=== PATIENT | female | born 1985 | race Two or more races ===

== ENCOUNTER 2024-06-15 05:54 | Day surgery (SDC) | payer OTHER ==
[2024-06-13 11:51] LABS: HEMATOCRIT 38.5 % (36.0-45.00); MEAN CELL VOLUME 91.5 fL (80.00-100.00); MEAN CORPUSCULAR HEMOGLOBIN 30.9 pg (27.00-32.0); MEAN CORPUSCULAR HGB CONC 33.8 g/dl (32.0-36.0); PLATELET COUNT 350 K/uL (150-450); RED CELL DISTRIBUTION WIDTH 15.7 % (11.5-14.5)
[2024-06-13 12:22] LABS: INR 0.95; PARTIAL THROMBOPLASTIN TIME 28.6 SECONDS (22.0-34.0); PROTHROMBIN TIME 10.4 SECONDS (9.0-11.5)
[~2024-06-15 05:54] MED LIST: CONCEPT DHA CA1 EACH; NASAL MIST126 ML
[2024-06-15] MEDS ORDERED: CEFOXITIN SODIUM 2,000 MG VIAL IV ONE ×2 (08:40→08:49)
[2024-06-15] MEDS ORDERED: POVIDONE-IODINE 118 ML BOTT TOP ONE (08:50)
[2024-06-15] MEDS ORDERED: METHYLERGONOVINE MALEATE 0.2 MG/ML AMPUL ONE (09:37)
== END 2024-06-15 12:15 | disposition home or self-care (01) ==
LOC: CIR.AMB 05:54
PROVIDERS: ATTEND Obstetrics & Gynecology Maternal & Fetal Medicine
DX: O02.1 Missed abortion (principal)

== ENCOUNTER 2025-06-09 08:52 | Outpatient (CLI) | payer OTHER | END 2025-06-09 08:53 | disposition home or self-care (01) | LOC: PRENATAL 08:52 | PROVIDERS: ATTEND Obstetrics & Gynecology Maternal & Fetal Medicine | DX: O36.80X0 Pregnancy with inconclusive fetal viability, not applicable or unspecified (principal); Z36.82 Encounter for antenatal screening for nuchal translucency; Z14.8 Genetic carrier of other disease; Z3A.13 13 weeks gestation of pregnancy ==

== ENCOUNTER 2025-07-19 23:30 | Emergency (ER) | payer OTHER ==
[~2025-07-19] VITALS: Ht 152.4 cm; Wt 81.2 kg
[2025-07-20 00:22] VITALS: BP 140/100; O2SAT 98
[2025-07-20 02:04] LABS: BASO % 0.3 % (0.1-1.2); EOS # 0.20 (0.04-0.54); EOS % 1.7 % (0.7-7.0); LYMPH # 2.24 (1.18-3.74); LYMPH % 19.4 % (19.3-53.1); MEAN PLATELET VOLUME 9.70 fl (9.4-12.4); MONO # 0.67 (0.24-0.82); MONO % 5.8 % (4.7-12.5); NEUT # 8.30 (1.56-6.13); NEUT % 71.8 % (34.0-71.1); RED CELL DISTRIBUTION WIDTH 13.0 % (11.6-14.4)
[2025-07-20 02:07] LABS: ALT/SGPT 17.0 U/L (12-78); AST/SGOT 8.0 U/L (15-37); BILIRUBIN TOTAL 0.25 mg/dL (0.3-1.2); BUN CREA RATIO 16.0 (7.0-25.0); CREATININE SERUM 0.45 mg/dL (0.55-1.02); GFR 152.8; GLOBULINA 3.8 G/DL (2.4-3.5); GLUCOSE FASTING 89.0 mg/dL (65-100); OSMOLALITY SERUM 279.0 MOSM/KG (275-295)
[2025-07-20 02:09] LABS: URINE APPEARANCE Clear; URINE BACTERIA 433.2 uL (0.0-1933); URINE BILIRRUBIN Negative (NEGATIVE); URINE BLOOD Negative; URINE COLOR Yellow; URINE EPITHELIAL CELLS 3.9 uL (0.0-38.8); URINE GLUCOSE Negative (NEGATIVE); URINE KETONE Negative (NEGATIVE); URINE LEUKOCYTE Negative; URINE NITRATE Negative; URINE PROTEIN Negative (NEGATIVE); URINE UROBILINOGEN 0.2 E.U./dl; URINE WBC 5.9 uL (0.0-23.2)
[2025-07-20 02:11] LABS: URINE CAST 0.00 uL (0.0-1.40); URINE RBC 1.6 uL (0.0-20.8)
[2025-07-20] MEDS ORDERED: LABETALOL HCL 100 MG TABLET PO STA (02:40)
[2025-07-20] MEDS ORDERED: LABETALOL HCL100 MG PO (02:48)
== END 2025-07-20 03:15 ==
LOC: ER 23:30
PROVIDERS: General Practice
DX: O16.2 Unspecified maternal hypertension, second trimester (principal); Z3A.19 19 weeks gestation of pregnancy; Z91.010 Allergy to peanuts

== ENCOUNTER 2025-08-01 13:18 | Outpatient (CLI) | payer OTHER ==
[~2025-08-01 13:18] MED LIST changes: +LABETALOL HCL100 MG PO
== END 2025-08-01 13:19 | disposition home or self-care (01) ==
LOC: PRENATAL 13:18
PROVIDERS: ATTEND Obstetrics & Gynecology Maternal & Fetal Medicine
DX: O44.00 Complete placenta previa NOS or without hemorrhage, unspecified trimester (principal); O09.529 Supervision of elderly multigravida, unspecified trimester; O36.1999 Maternal care for other isoimmunization, unspecified trimester, other fetus; O10.019 Pre-existing essential hypertension complicating pregnancy, unspecified trimester; Z3A.21 21 weeks gestation of pregnancy

== ENCOUNTER 2025-09-25 12:04 | Outpatient (CLI) | payer OTHER | END 2025-09-25 12:05 | disposition home or self-care (01) | LOC: PRENATAL 12:04 | PROVIDERS: ATTEND Obstetrics & Gynecology Maternal & Fetal Medicine | DX: O26.843 Uterine size-date discrepancy, third trimester (principal); O09.523 Supervision of elderly multigravida, third trimester; O36.8130 Decreased fetal movements, third trimester, not applicable or unspecified; O10.013 Pre-existing essential hypertension complicating pregnancy, third trimester; Z3A.29 29 weeks gestation of pregnancy ==

== ENCOUNTER 2025-10-02 15:06 | Outpatient (CLI) | payer OTHER | END 2025-10-02 15:07 | disposition home or self-care (01) | LOC: PRENATAL 15:06 | PROVIDERS: ATTEND Obstetrics & Gynecology Maternal & Fetal Medicine | DX: Z76.1 Encounter for health supervision and care of foundling (principal) ==